=== PATIENT | male | born 1975 | race Caucasian/White ===

== ENCOUNTER → 2016-10-10 | Outpatient (CLI) | payer OTHER ==
[~2016-10-10] MED LIST: COLA100C PO; DULC10SU2 PO; FENO145T PO; FISH100049 PO; FOLI1TAB2 PO; LEVA750T PO; LOPI600T PO; MILKSUS PO; MOTR200T44 PO; ONETAB4 PO; PERCOCET PO; PRAV40TA PO; SENO8.6T10 PO; SIMV20TA2 PO; THERTAB30 PO; VALT1TAB PO; VITA100T60 PO; serax PO
--- NOTE | 2016-10-10 09:54 | REP ---
LUMBOSACRAL SPINE PARTIAL: 10/10/2016. Clinical history: Low back pain. Comparison CT abdomen and pelvis 11/06/2015. Findings: Three views including a coned lateral view lumbosacral junction. The lateral view shows disc space narrowing at L4-5 with grade 1 anterolisthesis of L4-5. There appears to be bilateral spondylolysis at L4 and this is confirmed on the CT reconstructions in sagittal projection from abdominal CT last year. The anterolisthesis has developed since that time along with increased disc space narrowing. The other disc space heights are maintained. There is loss of lordosis. Vertebral body heights are maintained. Endplate sclerosis and spurring anteriorly at the L4-5 level. Pedicles, spinous and transverse processes are intact. SI joints, sacral ala and foramina symmetric. Lower thoracic levels and visualized ribs intact. Impression: 1. Degenerative disc changes with disc space narrowing at L4-5 with grade 1 spondylolisthesis due to spondylolysis of L4. No compression fracture or other acute finding. Signed by Devin Ye MD 10/10/2016 10:46 A
== END ==
LOC: M ADAMS 08:39
PROVIDERS: ATTEND Physician Assistant
DX: M54.5 Low back pain (principal)

== ENCOUNTER → 2017-01-01 | Outpatient (REF) | payer OTHER ==
[~2017-01-01] MED LIST changes: -COLA100C PO; +COLA100C3 PO
== END ==
LOC: M LAB REF 12:12
PROVIDERS: ATTEND Physician Assistant Medical
DX: J02.9 Acute pharyngitis, unspecified (principal)

== ENCOUNTER → 2017-08-06 | Outpatient (REF) | payer OTHER | LOC: M LAB REF 21:34 | DX: J02.9 Acute pharyngitis, unspecified (principal) ==

== ENCOUNTER → 2017-09-12 | Outpatient (CLI) | payer OTHER ==
[2017-09-12 19:49] LABS: BASO # 0.1 10^3/uL (0.0-0.2); BASO % 0.8 % (0.0-1.0); EOS # 0.1 10^3/uL (0.0-0.50); EOS % 1.3 % (0.0-3.0); HEMATOCRIT 45.2 % (42.0-52.0); HEMOGLOBIN 15.1 g/dl (14.0-18.0); LYMPH # 2.4 10^3/uL (1.5-4.5); LYMPH % 26.7 % (24.0-44.0); MEAN CORPUSCULAR HEMOGLOBIN 30.5 pg (27.0-33.0); MEAN CORPUSCULAR HGB CONC 33.4 g/dl (32.0-36.5); MEAN CORPUSCULAR VOLUME 91.3 fl (80.0-96.0); MONO # 0.7 10^3/uL (0.0-0.8); MONO % 7.9 % (0.0-5.0); NEUTROPHILS # 5.6 10^3/uL (1.8-7.7); NEUTROPHILS % 61.3 % (36.0-66.0); PLATELET COUNT, AUTOMATED 306 10^3/uL (150-450); RED BLOOD COUNT 4.95 10^6/uL (4.30-6.10); RED CELL DISTRIBUTION WIDTH 11.9 % (11.5-14.5); WHITE BLOOD COUNT 9.1 10^3/uL (4.0-10.0)
== END ==
LOC: M ADAMS 13:27
DX: J20.9 Acute bronchitis, unspecified (principal)
CPT/HCPCS: 85025

== ENCOUNTER → 2018-08-25 | Outpatient (CLI) | payer OTHER ==
[~2018-08-25] MED LIST changes: -COLA100C3 PO; +COLA100C5 PO; -FENO145T PO; +FENO145T13 PO; +FOLI1TAB11 PO; -FOLI1TAB2 PO; -LEVA750T PO; +LEVA750T7 PO; +MILK120011 PO; -MILKSUS PO
[2018-08-25 13:05] LABS: BASO % 0.2 % (0.0-1.0); EOS # 0.1 10^3/uL (0.0-0.50); EOS % 1.2 % (0.0-3.0); HEMATOCRIT 41.5 % (42.0-52.0); HEMOGLOBIN 14.7 g/dl (13.5-17.5); LYMPH # 1.1 10^3/uL (1.5-4.5); LYMPH % 27.5 % (24.0-44.0); MEAN CORPUSCULAR HEMOGLOBIN 31.4 pg (27.0-33.0); MEAN CORPUSCULAR HGB CONC 35.4 g/dl (32.0-36.5); MEAN CORPUSCULAR VOLUME 88.7 fl (80.0-96.0); MONO # 0.5 10^3/uL (0.0-0.8); MONO % 11.3 % (0.0-5.0); NEUTROPHILS # 2.4 10^3/uL (1.8-7.7); NEUTROPHILS % 59.6 % (36.0-66.0); PLATELET COUNT, AUTOMATED 211 10^3/uL (150-450); RED BLOOD COUNT 4.68 10^6/uL (4.30-6.10); WHITE BLOOD COUNT 4.1 10^3/uL (4.0-10.0)
[2018-08-25 13:12] LABS: ALBUMIN 4.2 GM/DL (3.2-5.2); ALT/SGPT 52 U/L (12-78); AMYLASE 51 U/L (25-115); BILIRUBIN,TOTAL 0.6 MG/DL (0.2-1.0); BLOOD UREA NITROGEN 14 MG/DL (7-18); CALCIUM LEVEL 8.7 MG/DL (8.5-10.1); CARBON DIOXIDE LEVEL 25 MEQ/L (21-32); CHLORIDE LEVEL 104 MEQ/L (98-107); CREATININE FOR GFR 1.03 MG/DL (0.70-1.30); GLOMERULAR FILTRATION RATE > 60.0 (>60); GLUCOSE, FASTING 115 MG/DL (70-100); LIPASE 158 U/L (73-393); POTASSIUM SERUM 4.1 MEQ/L (3.5-5.1); SODIUM LEVEL 138 MEQ/L (136-145); TOTAL PROTEIN 7.3 GM/DL (6.4-8.2)
== END ==
LOC: M LABDRWAD 08:24
PROVIDERS: ATTEND Family Medicine
DX: K29.00 Acute gastritis without bleeding (principal)

== ENCOUNTER → 2019-09-10 | Outpatient (CLI) | payer BC ==
[~2019-09-10] MED LIST changes: -FENO145T13 PO; +FENO145T7 PO; -SIMV20TA2 PO; +SIMV20TA22 PO
--- NOTE | 2019-09-10 15:16 | REP ---
Clinical: Right lower quadrant pain. Technique: Real time ríos scale ultrasound examination using linear high frequency transducer. Findings: Ultrasound examination of the right inguinal region is unremarkable and without evidence for hernia. No underlying fluid collection or abnormality identified. Evaluation of the left inguinal canal for comparison suggests a small early fat containing inguinal hernia. Impression: 1. No obvious right lower quadrant abnormality appreciated. 2. Possible small early fat containing left inguinal hernia. Electronically Signed by Akbar York MD 09/10/2019 03:08 P
== END ==
LOC: M RAD 14:06
PROVIDERS: ATTEND Physician Assistant
DX: K40.90 Unilateral inguinal hernia, without obstruction or gangrene, not specified as recurrent (principal)

== ENCOUNTER → 2020-03-15 | Outpatient (CLI) | payer BC ==
--- NOTE | 2020-04-21 10:26 | REP ---
ANTERIOR ABDOMINAL WALL ULTRASOUND: Delay in reporting results from hospital computer system malfunction from malware/ ransomware. HISTORY: Hernia. FINDINGS: There is a fat-containing umbilical hernia that is nonreducible at ultrasound.. No bowel is identified within the hernia sac. In the left inguinal area, there is a fat containing inguinal hernia that is reducible. In the right inguinal area, no hernia is identified. However, posteromedial to the inguinal canal and medial to the external iliac artery and vein, there is a focal hypoechoic structure measuring 3.5 x 1.1 x 4.2 cm that appears to be a hypoechoic mass. There are faintly visible internal echos.There is no vascular flow with color Doppler imaging. This is of uncertain significance and may represent mass, such as a hematoma, possibly organizing, or a mass of other etiology. This is in the area of the patient's pain. I would recommend follow up CT or MRI for further evaluation. The umbilical, left inguinal and right inguinal areas are evaluated without and with Valsalva. IMPRESSION: There is a hypoechoic 4.2 cm mass posteromedial to the right inguinal canal and medial to the right external iliac artery and vein in the inferior pelvis, of uncertain significance. Hematoma, organizing hematoma and mass of other etiology are some diagnostic possibilities. This is in the area of the patient's pain. There is a reducible fat-containing left inguinal hernia. There is a nonreducible fat-containing umbilical hernia. Consider CT or MRI for follow up evaluation of the pelvic mass on the right. MTDD
== END ==
LOC: M RAD 06:52
PROVIDERS: ATTEND Physician Assistant
DX: R10.9 Unspecified abdominal pain (principal)

== ENCOUNTER → 2020-04-21 | Outpatient (CLI) | payer BC ==
[~2020-04-21] MED LIST changes: +GASTROGRAFIN SOLUTION 30ML (Q9963) As Ordered ONE; +ISOVUE-370 76% 100ML VIAL As Ordered ONE
--- NOTE | 2020-04-21 11:26 | REPVR ---
PROCEDURE INFORMATION: Exam: CT Abdomen And Pelvis With Contrast Exam date and time: 04/21/2020 10:49 AM Age: 44 years old Clinical indication: Mass, lump, or swelling; Rlq; Additional info: R19.03 rlq mass TECHNIQUE: Imaging protocol: Computed tomography of the abdomen and pelvis with intravenous contrast. Radiation optimization: All CT scans at this facility use at least one of these dose optimization techniques: automated exposure control; mA and/or kV adjustment per patient size (includes targeted exams where dose is matched to clinical indication); or iterative reconstruction. Contrast material: ISOVUE 370; Contrast volume: 100 ml; Contrast route: INTRAVENOUS (IV); COMPARISON: CT ABD PELVIS WITH CONTRAST 11/06/2015 3:53 PM FINDINGS: Liver: Normal. No mass. Gallbladder and bile ducts: Normal. No calcified stones. No ductal dilation. Pancreas: Normal. No ductal dilation. Spleen: Normal. No splenomegaly. Adrenals: Normal. No mass. Kidneys and ureters: Normal. No hydronephrosis. Stomach and bowel: Sigmoid and distal descending colonic diverticula are present without evidence of diverticulitis. Appendix: The vermiform appendix is normal. Intraperitoneal space: Unremarkable. No free air. No significant fluid collection. Vasculature: Unremarkable. No abdominal aortic aneurysm. Lymph nodes: No enlarged lymph nodes. Urinary bladder: Unremarkable as visualized. Reproductive: Unremarkable as visualized. Bones/joints: Bilateral L4 spondylolysis. Severe L4-L5 degenerative disc disease, mild anterolisthesis, moderate spondylosis is, moderate bilateral neural foraminal narrowing. Soft tissues: A small paraumbilical hernia containing only abdominal fat is noted. IMPRESSION: 1. No right lower quadrant mass identified. 2. Diverticulosis. Electronically signed by: David Mccracken On 04/21/2020 11:26:10 AM
== END ==
LOC: M RAD 09:10
PROVIDERS: ATTEND Physician Assistant
DX: R19.03 Right lower quadrant abdominal swelling, mass and lump (principal)
CPT/HCPCS: 74177; Q9963; Q9967

== ENCOUNTER 2021-03-01 20:03 | Emergency (ER) | payer BC ==
[~2021-03-01] VITALS: Ht 175.3 cm; Wt 100.1 kg
[~2021-03-01 20:03] MED LIST changes: -GASTROGRAFIN SOLUTION 30ML (Q9963) As Ordered ONE; -ISOVUE-370 76% 100ML VIAL As Ordered ONE
[2021-03-01] MEDS ORDERED: LISI10TA22 PO (20:29)
[2021-03-01 21:09] LABS: BASO % 0.5 % (0.0-1.0); EOS % 0.5 % (0.0-3.0); HEMATOCRIT 44.4 % (42.0-52.0); HEMOGLOBIN 15.5 g/dl (13.5-17.5); LYMPH # 1.6 10^3/uL (1.5-5.0); LYMPH % 27.8 % (24.0-44.0); MEAN CORPUSCULAR HEMOGLOBIN 32.2 pg (27.0-33.0); MEAN CORPUSCULAR HGB CONC 34.9 g/dl (32.0-36.5); MEAN CORPUSCULAR VOLUME 92.1 fl (80.0-96.0); MONO # 0.5 10^3/uL (0.0-0.8); NEUTROPHILS # 3.7 10^3/uL (1.5-8.5); NEUTROPHILS % 62.7 % (36.0-66.0); PLATELET COUNT, AUTOMATED 160 10^3/uL (150-450); RED BLOOD COUNT 4.82 10^6/uL (4.30-6.10); WHITE BLOOD COUNT 5.9 10^3/uL (4.0-10.0)
[2021-03-01] MEDS ORDERED: NS 1,000 ML IV ONE (21:10)
[2021-03-01 21:20] LABS: INR 0.9; PROTHROMBIN TIME 12.5 SECONDS (12.7-14.5)
[2021-03-01 21:21] LABS: PARTIAL THROMBOPLASTIN TIME 29.1 SECONDS (25.9-37.0)
[2021-03-01 21:45] LABS: ALBUMIN 3.8 GM/DL (3.2-5.2); ALT/SGPT 43 U/L (12-78); BILIRUBIN,DIRECT 0.1 MG/DL (0.0-0.2); BILIRUBIN,TOTAL 0.7 MG/DL (0.2-1.0); BLOOD UREA NITROGEN 14 MG/DL (7-18); CALCIUM LEVEL 8.5 MG/DL (8.5-10.1); CARBON DIOXIDE LEVEL 25 MEQ/L (21-32); CHLORIDE LEVEL 105 MEQ/L (98-107); CK-MB VALUE MASS < 1.0 NG/ML (<3.6); CPK CREATINE PHOSPHOKINASE 112 U/L (39-308); CREATININE FOR GFR 0.96 MG/DL (0.70-1.30); ETHYL ALCOHOL (ETHANOL) < 0.003 % (0.000-0.010); FREE T4 0.83 NG/DL (0.76-1.46); GLOMERULAR FILTRATION RATE > 60.0 (>60); GLUCOSE, FASTING 104 MG/DL (70-100); LIPASE 191 U/L (73-393); MB/CK RELATIVE INDEX 0.89 (< OR =4); POTASSIUM SERUM 3.6 MEQ/L (3.5-5.1); SODIUM LEVEL 138 MEQ/L (136-145); TOTAL PROTEIN 7.1 GM/DL (6.4-8.2); TROPONIN I < 0.02 NG/ML (< 0.10)
[2021-03-01] MEDS ORDERED: ISOVUE-370 76% 100ML VIAL As Ordered ONE (22:09)
[2021-03-01] MEDS ORDERED: GI COCKTAIL 50ML BTL(HYOSCYAMINE/MAALOX/LIDOCAINE VISCOUS)(1:3:1) PO ONE (22:30)
[2021-03-01] MEDS ORDERED: HYDROMORPHONE HCL 0.5 MG/ 0.5 ML SYRINGE (J1170 PER 1) IV PRN (22:30)
[2021-03-01] MEDS ORDERED: hydrALAZINE 20MG/ML 1ML VIAL (J0360 PER 20MG) IV ONE (22:30)
--- NOTE | 2021-03-01 23:03 | REPVR ---
PROCEDURE INFORMATION: Exam: CTA Chest With Contrast Exam date and time: 03/01/2021 10:27 PM Age: 45 years old Clinical indication: Chest wall pain; Additional info: Chest pain, luq pain TECHNIQUE: Imaging protocol: Computed tomographic angiography of the chest with contrast. Axial, coronal and sagittal reformatted images were created and reviewed. 3D rendering (Not supervised by radiologist): MIP and/or 3D reconstructed images were created by the technologist. Radiation optimization: All CT scans at this facility use at least one of these dose optimization techniques: automated exposure control; mA and/or kV adjustment per patient size (includes targeted exams where dose is matched to clinical indication); or iterative reconstruction. Contrast material: ISOVUE 370; Contrast volume: 100 ml; Contrast route: INTRAVENOUS (IV); COMPARISON: CR PORTABLE CHEST X-RAY 03/01/2021 8:17 PM FINDINGS: Pulmonary arteries: Contrast opacification satisfactory. No intraluminal filling defect. Aorta: Unremarkable. No aneurysm or dissection. Lungs: Mild central peribronchial thickening, suggestive of airway inflammation. Subtle foci of nodular ground-glass infiltration in the left upper and left lower lobes (series 401, images 84 and 107), nonspecific in appearance. No consolidation. Pleural spaces: Unremarkable. No pneumothorax. No pleural effusion. Heart: Unremarkable. No cardiomegaly. No pericardial effusion. Lymph nodes: No pathologically enlarged lymph nodes. Bones/joints: No acute osseous abnormality. Soft tissues: Unremarkable. IMPRESSION: 1. No CT evidence of pulmonary embolism. 2. Subtle foci of nodular ground-glass infiltration in the left upper and left lower lobes, nonspecific in appearance. Infection cannot be excluded. 3. Additional findings, as above. Electronically signed by: Blayne Burton On 03/01/2021 23:02:44 PM
--- NOTE | 2021-03-01 23:08 | REPVR ---
PROCEDURE INFORMATION: Exam: CT Abdomen And Pelvis With Contrast Exam date and time: 03/01/2021 10:27 PM Age: 45 years old Clinical indication: Abdominal pain; Localized; Left upper quadrant (luq); Additional info: Chest pain, luq pain TECHNIQUE: Imaging protocol: Computed tomography of the abdomen and pelvis with contrast. Axial, coronal and sagittal reformatted images were created and reviewed. Radiation optimization: All CT scans at this facility use at least one of these dose optimization techniques: automated exposure control; mA and/or kV adjustment per patient size (includes targeted exams where dose is matched to clinical indication); or iterative reconstruction. Contrast material: ISOVUE 370; Contrast volume: 100 ml; Contrast route: INTRAVENOUS (IV); COMPARISON: CT ABD PELVIS WITH CONTRAST 04/21/2020 11:06 AM FINDINGS: Liver: Mild hepatomegaly. Diffuse hepatic steatosis. Gallbladder and bile ducts: No radiodense gallstones. No biliary ductal dilatation. Pancreas: Unremarkable. Spleen: Unremarkable. Adrenal glands: Normal. No mass. Kidneys and ureters: No mass. No radiodense calculi. No hydronephrosis. Stomach and bowel: No bowel wall thickening. No obstruction. No pneumatosis. Appendix: Normal. Intraperitoneal space: No free fluid. No organized fluid collection. No free air. Vasculature: Unremarkable. No aneurysm. Lymph nodes: No pathologically enlarged lymph nodes. Urinary bladder: Unremarkable as visualized. Reproductive: Unremarkable. Bones/joints: No acute osseous abnormality. Mild degenerative changes. Bilateral L4 pars defects with grade 1 anterolisthesis of L4 on L5. Soft tissues: Small, fat containing umbilical hernia. IMPRESSION: 1. No CT evidence of acute intra-abdominal or pelvic pathology. 2. Additional findings, as above. Electronically signed by: Blayne Burton On 03/01/2021 23:07:42 PM
[2021-03-01] MEDS ORDERED: **hydrALAZINE HCL** 25 MG TAB PO ONE (23:50)
[2021-03-02 00:26] VITALS: BP 156/82
[2021-03-02 01:17] LABS: CK-MB VALUE MASS < 1.0 NG/ML (<3.6); CPK CREATINE PHOSPHOKINASE 87 U/L (39-308); MB/CK RELATIVE INDEX 1.15 (< OR =4); TROPONIN I < 0.02 NG/ML (< 0.10)
[2021-03-02] MEDS ORDERED: HYDR-3490 PO (01:56)
[2021-03-02 02:15] VITALS: BP 149/83
--- NOTE | 2021-03-02 08:01 | ECGEPIP ---
[facility] - ED Test Date: 2021-03-01 Pat Name: GODFREY MASON Department: Room: - Gender: Male [employer]: BRUCE BROWN : 1975 Requested By: BRITTNEY Moore Order Number: [id number] Reading MD: Selwyn Blum Measurements Intervals [place] Rate: 71 P: 37 [place]: 194 QRS: 1 QRSD: 96 T: 9 QT: 384 QTc: 417 Interpretive Statements Normal sinus rhythm Minimal voltage criteria for LVH, may be normal variant ( R in aVL ) NONSPECIFIC T WAVE ABNORMALITY(S) NO PRIORS FOR COMPARISON Electronically Signed on 03-02-2021 8:00:41 EDT by Selwyn Blum
--- NOTE | 2021-03-02 08:09 | ECGEPIP ---
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
--- NOTE | 2021-03-02 08:31 | REP ---
INDICATION: CHEST PAIN. COMPARISON: 10/29/2017 TECHNIQUE: Portable FINDINGS: The technique utilized in obtaining the radiograph has magnified the cardiac silhouette and accentuated the interstitial markings. The superior mediastinal structures are midline. The cardiac silhouette is unremarkable in size, shape, and position. The diaphragmatic surfaces of the lungs are regular, and the costophrenic angles are clear. The pulmonary bowers are clear. The imaged osseous structures are intact. IMPRESSION: There is no acute cardiopulmonary disease. <Electronically signed by Alonzo Guthrie > 03/02/21 [id number]
--- NOTE | 2021-03-02 08:56 | ED PDOC ---
Post-Departure Follow-Up radiology rpeo rtfaxed to Yumiko Fernandez MD Mar 02, 2021 08:56
== END 2021-03-02 02:25 | disposition home or self-care (01) ==
LOC: M ED 20:03
DX: R07.89 Other chest pain (principal); I10 Essential (primary) hypertension; R11.0 Nausea; R91.8 Other nonspecific abnormal finding of lung field; R16.0 Hepatomegaly, not elsewhere classified; E78.5 Hyperlipidemia, unspecified; M43.16 Spondylolisthesis, lumbar region; Z79.899 Other long term (current) drug therapy
CPT/HCPCS: 71045; 71275; 74177; 80048; 80076; 81001; 82077; 82550; 82553; 83690; 84439; 84443; 84484; 85025; 85610; 85730; 93005; 93041; 94760; 96361; 96374; 96375; 99285; J0360; J1170; Q9967

== ENCOUNTER → 2021-08-18 | Outpatient (CLI) | payer BC ==
[~2021-08-18] MED LIST changes: +HYDR-3490 PO; +LISI10TA22 PO; +PANT40TA29 PO; +VALA1TAB5 PO
== END ==
LOC: M LABSMTC 09:41
PROVIDERS: ATTEND Anesthesiology
DX: Z01.818 Encounter for other preprocedural examination (principal); Z11.52 Encounter for screening for COVID-19

== ENCOUNTER 2021-08-23 11:17 | Day surgery (SDC) | payer BC ==
[~2021-08-23] VITALS: Ht 175.3 cm; Wt 95.3 kg
[~2021-08-23 11:17] MED LIST changes: +NS 1,000 ML IV ONE
[2021-08-23] MEDS ORDERED: LIDOCAINE 2% 100MG/5ML SDV (FOR ANES.) As Ordered ONE (12:56)
[2021-08-23] MEDS ORDERED: fentaNYL 100 MCG/2 ML INJECTION (J3010) As Ordered ONE (12:56)
[2021-08-23] MEDS ORDERED: propofoL 200 MG/20 ML VIAL As Ordered ONE ×2 (13:04→13:12)
[2021-08-23 13:39] VITALS: BP 140/75
== END 2021-08-23 13:40 | disposition home or self-care (01) ==
LOC: M OPP 11:17
PROVIDERS: ATTEND Surgery
DX: Z12.11 Encounter for screening for malignant neoplasm of colon (principal); K31.89 Other diseases of stomach and duodenum; R12 Heartburn; Z79.899 Other long term (current) drug therapy
CPT/HCPCS: 43239; 45378; 88305; J3010

== ENCOUNTER → 2022-05-16 | Outpatient (CLI) | payer BC ==
[~2022-05-16] MED LIST changes: -NS 1,000 ML IV ONE
[2022-05-16 15:46] LABS: RED BLOOD COUNT 4.85 10^6/uL (4.30-6.10); WHITE BLOOD COUNT 4.5 10^3/uL (4.0-10.0)
[2022-05-16 15:47] LABS: MEAN CORPUSCULAR HEMOGLOBIN 35.1 pg (27.0-33.0); MEAN CORPUSCULAR VOLUME 94.8 fl (80.0-96.0); PLATELET COUNT, AUTOMATED 130 10^3/uL (150-450)
[2022-05-16 15:48] LABS: MEAN CORPUSCULAR HGB CONC 36.9 g/dl (32.0-36.5)
[2022-05-16 16:05] LABS: HEMOGLOBIN A1c 5.2 %
[2022-05-16 16:43] LABS: ALBUMIN 3.7 GM/DL (3.2-5.2); ALT/SGPT 60 U/L (12-78); BILIRUBIN,TOTAL 0.8 MG/DL (0.2-1.0); BLOOD UREA NITROGEN 18 MG/DL (7-18); CALCIUM LEVEL 8.1 MG/DL (8.5-10.1); CARBON DIOXIDE LEVEL 26 MEQ/L (21-32); CHLORIDE LEVEL 96 MEQ/L (98-107); CHOLESTEROL LEVEL 525 MG/DL (<200); CHOLESTEROL RISK RATIO 16.935 (<5); CREATININE FOR GFR 1.03 MG/DL (0.70-1.30); GLOMERULAR FILTRATION RATE > 60.0 (>60); GLUCOSE, FASTING 147 MG/DL (70-100); HDL CHOLESTEROL 31 MG/DL (>40); NON-HDL-C 494 MG/DL; SODIUM LEVEL 130 MEQ/L (136-145); TOTAL PROTEIN 6.9 GM/DL (6.4-8.2); TRIGLYCERIDES LEVEL 3055 MG/DL (<150)
[2022-05-16 17:37] LABS: ERYTHROCYTE SEDIMENTATION RATE 4 mm/hr (0-15)
[2022-05-16 18:57] LABS: VITAMIN B12 LEVEL 388 PG/ML (247-911)
== END ==
LOC: M LABDRWAD 09:14
PROVIDERS: ATTEND Family Medicine
DX: E78.2 Mixed hyperlipidemia (principal); Z13.1 Encounter for screening for diabetes mellitus; L40.9 Psoriasis, unspecified; I10 Essential (primary) hypertension; F10.10 Alcohol abuse, uncomplicated; M25.561 Pain in right knee

== ENCOUNTER → 2022-05-17 | Outpatient (CLI) | payer BC ==
[2022-05-17 20:20] LABS: HEMATOCRIT 44.2 % (42.0-52.0); HEMOGLOBIN 15.4 g/dl (13.5-17.5); MEAN CORPUSCULAR HEMOGLOBIN 32.9 pg (27.0-33.0); MEAN CORPUSCULAR HGB CONC 34.8 g/dl (32.0-36.5); MEAN CORPUSCULAR VOLUME 94.4 fl (80.0-96.0); PLATELET COUNT, AUTOMATED 109 10^3/uL (150-450); RED BLOOD COUNT 4.68 10^6/uL (4.30-6.10); WHITE BLOOD COUNT 3.8 10^3/uL (4.0-10.0)
[2022-05-17 22:02] LABS: BILIRUBIN,DIRECT 0.2 MG/DL (0.0-0.2); TOTAL PROTEIN 7.3 GM/DL (6.4-8.2)
== END ==
LOC: M PLALAB 15:15
PROVIDERS: ATTEND Family Medicine
DX: K85.80 Other acute pancreatitis without necrosis or infection (principal); F10.10 Alcohol abuse, uncomplicated

== ENCOUNTER → 2022-08-09 | Outpatient (REF) | payer BC, OTHER ==
[2022-08-09 14:21] LABS: CHOLESTEROL LEVEL 282 MG/DL (<200); CHOLESTEROL RISK RATIO 7.87 (<5); HDL CHOLESTEROL 35.8 MG/DL (>40); NON-HDL-C 246 MG/DL; TRIGLYCERIDES LEVEL 719 MG/DL (<150)
== END ==
LOC: M SFHCADAM 08:20
PROVIDERS: ATTEND Family Medicine
DX: E78.2 Mixed hyperlipidemia (principal)

== ENCOUNTER → 2023-04-11 | Outpatient (CLI) | payer OTHER ==
[2023-04-11 11:50] LABS: HEMATOCRIT 42.4 % (42.0-52.0); HEMOGLOBIN 14.3 g/dl (13.5-17.5); MEAN CORPUSCULAR HEMOGLOBIN 33.1 pg (27.0-33.0); MEAN CORPUSCULAR HGB CONC 33.7 g/dl (32.0-36.5); MEAN CORPUSCULAR VOLUME 98.1 fl (80.0-96.0); PLATELET COUNT, AUTOMATED 165 10^3/uL (150-450); RED BLOOD COUNT 4.32 10^6/uL (4.30-6.10); WHITE BLOOD COUNT 3.3 10^3/uL (4.0-10.0)
[2023-04-11 12:10] LABS: C REACTIVE PROTEIN QUANTITATIV < 0.40 MG/DL (<1.0)
[2023-04-11 12:13] LABS: ERYTHROCYTE SEDIMENTATION RATE 11 mm/hr (0-15)
[2023-04-11 12:29] LABS: ALBUMIN 3.9 G/DL (3.2-5.2); ALKALINE PHOSPHATASE 51 U/L (46-116); ALT/SGPT 71 U/L (7.0-40); AST/SGOT 71 U/L (<34); BILIRUBIN,TOTAL 1.1 MG/DL (0.3-1.2); BLOOD UREA NITROGEN 16 MG/DL (9-23); CALCIUM LEVEL 8.9 MG/DL (8.5-10.1); CARBON DIOXIDE LEVEL 28 MMOL/L (20-31); CHLORIDE LEVEL 103 MMOL/L (98-107); CHOLESTEROL LEVEL 435 MG/DL (<200); CHOLESTEROL RISK RATIO 12.18 (<5); CREATININE FOR GFR 0.89 MG/DL (0.70-1.30); GLOMERULAR FILTRATION RATE > 60.0 (>60); GLUCOSE, FASTING 85 MG/DL (60-100); HDL CHOLESTEROL 35.7 MG/DL (>40); NON-HDL-C 399.3 MG/DL; POTASSIUM SERUM 4.5 MMOL/L (3.5-5.1); SODIUM LEVEL 138 MMOL/L (136-145); TRIGLYCERIDES LEVEL 1223 MG/DL (<150)
== END ==
LOC: M PLALAB 08:41
PROVIDERS: ATTEND Family Medicine
DX: E78.2 Mixed hyperlipidemia (principal)

== ENCOUNTER → 2023-05-30 | Outpatient (REF) | payer OTHER ==
[2023-05-30 14:00] LABS: HEMATOCRIT 44.3 % (42.0-52.0); HEMOGLOBIN 15.1 g/dl (13.5-17.5); MEAN CORPUSCULAR HEMOGLOBIN 33.9 pg (27.0-33.0); MEAN CORPUSCULAR HGB CONC 34.1 g/dl (32.0-36.5); MEAN CORPUSCULAR VOLUME 99.6 fl (80.0-96.0); PLATELET COUNT, AUTOMATED 169 10^3/uL (150-450); RED BLOOD COUNT 4.45 10^6/uL (4.30-6.10); WHITE BLOOD COUNT 4.2 10^3/uL (4.0-10.0)
[2023-05-30 14:24] LABS: ALBUMIN 4.1 G/DL (3.2-5.2); ALKALINE PHOSPHATASE 55 U/L (46-116); ALT/SGPT 74 U/L (7.0-40); AST/SGOT 66 U/L (<34); BILIRUBIN,TOTAL 0.8 MG/DL (0.3-1.2); BLOOD UREA NITROGEN 20 MG/DL (9-23); CALCIUM LEVEL 9.1 MG/DL (8.5-10.1); CARBON DIOXIDE LEVEL 26 MMOL/L (20-31); CHLORIDE LEVEL 103 MMOL/L (98-107); CHOLESTEROL LEVEL 229 MG/DL (<200); CHOLESTEROL RISK RATIO 4.61 (<5); CREATININE FOR GFR 0.95 MG/DL (0.70-1.30); GLOMERULAR FILTRATION RATE > 60.0 (>56); GLUCOSE, FASTING 89 MG/DL (60-100); HDL CHOLESTEROL 49.6 MG/DL (>40); NON-HDL-C 179.4 MG/DL; POTASSIUM SERUM 4.2 MMOL/L (3.5-5.1); SODIUM LEVEL 138 MMOL/L (136-145); TRIGLYCERIDES LEVEL 601 MG/DL (<150)
[2023-05-30 14:26] LABS: TOTAL 25(OH) VITAMIN D 31.8 NG/ML (20.0-100.0); VITAMIN B12 LEVEL 350 PG/ML (211-911)
== END ==
LOC: M LABDRWAD 12:49
PROVIDERS: ATTEND Internal Medicine Hematology
DX: F10.10 Alcohol abuse, uncomplicated (principal); E78.2 Mixed hyperlipidemia

== ENCOUNTER 2023-06-11 15:22 | Emergency (ER) | payer BC, OTHER ==
[~2023-06-11] VITALS: Ht 175.3 cm; Wt 95.5 kg
[2023-06-11 15:24] VITALS: TEMP 98.6
[2023-06-11 16:28] LABS: BASO % 0.9 % (0.0-1.0); EOS % 0.9 % (0.0-3.0); HEMATOCRIT 42.5 % (42.0-52.0); HEMOGLOBIN 14.9 g/dl (13.5-17.5); LYMPH % 27.3 % (24.0-44.0); MEAN CORPUSCULAR HEMOGLOBIN 34.2 pg (27.0-33.0); MEAN CORPUSCULAR HGB CONC 35.1 g/dl (32.0-36.5); MEAN CORPUSCULAR VOLUME 97.5 fl (80.0-96.0); MONO # 0.3 10^3/uL (0.0-0.8); MONO % 8.6 % (2.0-8.0); NEUTROPHILS # 2.2 10^3/uL (1.5-8.5); PLATELET COUNT, AUTOMATED 121 10^3/uL (150-450); RED BLOOD COUNT 4.36 10^6/uL (4.30-6.10); WHITE BLOOD COUNT 3.5 10^3/uL (4.0-10.0)
[2023-06-11 16:55] LABS: LIPASE 80 U/L (12-53)
[2023-06-11 16:59] LABS: ALBUMIN 3.6 G/DL (3.2-5.2); ALKALINE PHOSPHATASE 98 U/L (46-116); ALT/SGPT 267 U/L (7.0-40); AST/SGOT 297 U/L (<34); BILIRUBIN,DIRECT 0.3 MG/DL (<0.4); BILIRUBIN,TOTAL 0.6 MG/DL (0.3-1.2); BLOOD UREA NITROGEN 18 MG/DL (9-23); CALCIUM LEVEL 9.2 MG/DL (8.5-10.1); CARBON DIOXIDE LEVEL 25 MMOL/L (20-31); CHLORIDE LEVEL 102 MMOL/L (98-107); CK-MB VALUE MASS < 1.0 NG/ML (<3.6); CPK CREATINE PHOSPHOKINASE 233 U/L (46-171); CREATININE FOR GFR 0.89 MG/DL (0.70-1.30); GLOMERULAR FILTRATION RATE > 60.0 (>56); GLUCOSE, FASTING 110 MG/DL (60-100); MB/CK RELATIVE INDEX 0.42 (< OR =4); POTASSIUM SERUM 3.9 MMOL/L (3.5-5.1); SODIUM LEVEL 136 MMOL/L (136-145); TOTAL PROTEIN 6.4 G/DL (5.7-8.2)
[2023-06-11] MEDS ORDERED: HYDR-3490 PO (17:09)
[2023-06-11] MEDS ORDERED: AMBI10TA PO (17:09)
[2023-06-11] MEDS ORDERED: NS 1,000 ML IV SCH (18:20)
[2023-06-11] MEDS ORDERED: ISOVUE-370 76% 100ML VIAL As Ordered ONE (18:51)
[2023-06-11 19:08] LABS: CK-MB VALUE MASS < 1.0 NG/ML (<3.6)
[2023-06-11 19:18] LABS: CPK CREATINE PHOSPHOKINASE 201 U/L (46-171); MB/CK RELATIVE INDEX 0.49 (< OR =4)
[2023-06-11] MEDS ORDERED: CHOL4POW26 PO (20:54)
[2023-06-11] MEDS ORDERED: FLUO0.05 TOP (20:54)
[2023-06-11] MEDS ORDERED: ROSU20TA61 PO (20:54)
[2023-06-11] MEDS ORDERED: NALT50TA4 PO (20:54)
[2023-06-11] MEDS ORDERED: HOME MED LIST COMPLETE! XX SCH (21:00)
[2023-06-11 21:15] VITALS: BP 158/97; O2SAT 95
== END 2023-06-11 21:37 | disposition left against medical advice (07) ==
LOC: M ED 15:22
DX: R42 Dizziness and giddiness (principal); I10 Essential (primary) hypertension; E78.5 Hyperlipidemia, unspecified; L40.9 Psoriasis, unspecified; F10.10 Alcohol abuse, uncomplicated; Z79.899 Other long term (current) drug therapy
CPT/HCPCS: 36415; 71275; 74177; 80048; 80076; 82550; 82553; 83690; 84484; 85025; 93005; 93041; 94760; 96360; 96361; 99285; Q9967

== ENCOUNTER → 2023-06-12 | Outpatient (CLI) | payer BC ==
[~2023-06-12] MED LIST changes: +AMBI10TA PO; +CHOL4POW26 PO; +FLUO0.05 TOP; +NALT50TA4 PO; +ROSU20TA61 PO
[2023-06-12 17:40] LABS: INR 1.06; PARTIAL THROMBOPLASTIN TIME 27.1 SECONDS (24.8-34.2); PROTHROMBIN TIME 13.5 SECONDS (12.5-14.5)
[2023-06-12 17:52] LABS: BASO % 0.7 % (0.0-1.0); EOS % 0.4 % (0.0-3.0); HEMATOCRIT 43.9 % (42.0-52.0); HEMOGLOBIN 15.1 g/dl (13.5-17.5); LYMPH % 22.5 % (24.0-44.0); MEAN CORPUSCULAR HGB CONC 34.4 g/dl (32.0-36.5); MEAN CORPUSCULAR VOLUME 98.9 fl (80.0-96.0); MONO # 0.4 10^3/uL (0.0-0.8); MONO % 7.9 % (2.0-8.0); NEUTROPHILS # 3.1 10^3/uL (1.5-8.5); NEUTROPHILS % 68.3 % (36.0-66.0); PLATELET COUNT, AUTOMATED 121 10^3/uL (150-450); RED BLOOD COUNT 4.44 10^6/uL (4.30-6.10); WHITE BLOOD COUNT 4.5 10^3/uL (4.0-10.0)
[2023-06-12 17:56] LABS: CK-MB VALUE MASS < 1.0 NG/ML (<3.6)
[2023-06-12 18:00] LABS: LIPASE 45 U/L (12-53)
[2023-06-12 18:02] LABS: CPK CREATINE PHOSPHOKINASE 123 U/L (46-171); MB/CK RELATIVE INDEX 0.81 (< OR =4)
[2023-06-12 18:04] LABS: FOLATE > 24.0 NG/ML (>5.4); VITAMIN B12 LEVEL 722 PG/ML (211-911)
[2023-06-12 18:08] LABS: ALKALINE PHOSPHATASE 84 U/L (46-116); ALT/SGPT 221 U/L (7.0-40); AST/SGOT 191 U/L (<34); BILIRUBIN,TOTAL 0.9 MG/DL (0.3-1.2); BLOOD UREA NITROGEN 9 MG/DL (9-23); CALCIUM LEVEL 9.2 MG/DL (8.5-10.1); CARBON DIOXIDE LEVEL 26 MMOL/L (20-31); CHLORIDE LEVEL 106 MMOL/L (98-107); CREATININE FOR GFR 0.85 MG/DL (0.70-1.30); GLOMERULAR FILTRATION RATE > 60.0 (>56); GLUCOSE, FASTING 113 MG/DL (60-100); POTASSIUM SERUM 4.2 MMOL/L (3.5-5.1); SODIUM LEVEL 141 MMOL/L (136-145); TOTAL PROTEIN 6.9 G/DL (5.7-8.2)
[2023-06-12 18:26] LABS: HEMOGLOBIN A1c 4.6 % (4.0-6.0)
[2023-06-16 11:35] LABS: THYROID STIMULATING HORMONE 1.318 uIU/ML (0.55-4.78)
[2023-06-16 12:06] LABS: HEPATITIS B CORE ANTIBODY IGM NEGATIVE (NEGATIVE); HEPATITIS C VIRUS ABY INDEX 0.02 INDEX (<0.8)
[2023-06-17 17:07] LABS: CK 1 (BB) 0 % (0); CK 2 (MB) 0 % (0-3); CK 3 (MM) 100 % (97-100); CK MACRO I PERCENT 0 % (Not Observed); CK MACRO II PERCENT 0 % (Not Observed); CK TOTAL 123 U/L (49-439)
== END ==
LOC: M PLALAB 15:17
PROVIDERS: ATTEND Physician Assistant
DX: R74.8 Abnormal levels of other serum enzymes (principal); R79.89 Other specified abnormal findings of blood chemistry; F41.9 Anxiety disorder, unspecified; F10.10 Alcohol abuse, uncomplicated

== ENCOUNTER → 2023-08-13 | Outpatient (CLI) | payer OTHER | LOC: M PLAIMG 11:16 | PROVIDERS: ATTEND Nurse Practitioner Family | DX: M54.2 Cervicalgia (principal); M54.50 Low back pain, unspecified; M47.896 Other spondylosis, lumbar region ==

== ENCOUNTER → 2023-08-21 | Outpatient (CLI) | payer BC | LOC: M PLAIMG 10:46 | PROVIDERS: ATTEND Nurse Practitioner Family | DX: S06.0X0A Concussion without loss of consciousness, initial encounter (principal) ==

== ENCOUNTER → 2023-08-25 | Outpatient (REF) | payer OTHER ==
[2023-08-25 14:46] LABS: HEMATOCRIT 46.3 % (42.0-52.0); HEMOGLOBIN 15.4 g/dl (13.5-17.5); MEAN CORPUSCULAR HEMOGLOBIN 32.5 pg (27.0-33.0); MEAN CORPUSCULAR HGB CONC 33.3 g/dl (32.0-36.5); MEAN CORPUSCULAR VOLUME 97.7 fl (80.0-96.0); PLATELET COUNT, AUTOMATED 182 10^3/uL (150-450); RED BLOOD COUNT 4.74 10^6/uL (4.30-6.10); WHITE BLOOD COUNT 5.2 10^3/uL (4.0-10.0)
[2023-08-25 15:09] LABS: ALBUMIN 4.1 G/DL (3.2-5.2); ALKALINE PHOSPHATASE 60 U/L (46-116); ALT/SGPT 34 U/L (7.0-40); AST/SGOT 24 U/L (<34); BILIRUBIN,TOTAL 0.7 MG/DL (0.3-1.2); BLOOD UREA NITROGEN 16 MG/DL (9-23); CALCIUM LEVEL 9.4 MG/DL (8.5-10.1); CARBON DIOXIDE LEVEL 27 MMOL/L (20-31); CHLORIDE LEVEL 105 MMOL/L (98-107); CHOLESTEROL LEVEL 212 MG/DL (<200); CHOLESTEROL RISK RATIO 4.56 (<5); CREATININE FOR GFR 0.97 MG/DL (0.70-1.30); GLOMERULAR FILTRATION RATE > 60.0 (>56); GLUCOSE, FASTING 98 MG/DL (60-100); HDL CHOLESTEROL 46.4 MG/DL (>40); LDL CHOLESTEROL 116.4 MG/DL (<100); NON-HDL-C 165.6 MG/DL; POTASSIUM SERUM 4.4 MMOL/L (3.5-5.1); SODIUM LEVEL 138 MMOL/L (136-145); TRIGLYCERIDES LEVEL 246 MG/DL (<150)
== END ==
LOC: M SFHCPLAZ 07:47
PROVIDERS: ATTEND Internal Medicine Hematology
DX: E78.2 Mixed hyperlipidemia (principal); K85.80 Other acute pancreatitis without necrosis or infection

== ENCOUNTER → 2023-12-02 | Outpatient (REF) | payer BC ==
[2023-12-02 15:22] LABS: HEPATITIS B SURFACE ANTIGEN NEGATIVE (NEGATIVE)
[2023-12-02 15:34] LABS: HIV 1&2 SCREEN NEGATIVE (NEGATIVE)
[2023-12-02 15:43] LABS: HEPATITIS B CORE ANTIBODY IGM NEGATIVE (NEGATIVE); HEPATITIS C VIRUS ABY INDEX < 0.02 INDEX (<0.8)
== END ==
LOC: M SFHCADAM 10:27
PROVIDERS: ATTEND Nurse Practitioner Family
DX: L40.0 Psoriasis vulgaris (principal)

== ENCOUNTER 2024-07-27 09:13 | Inpatient (IN) | payer BC ==
[~2024-07-27] VITALS: Ht 175.3 cm; Wt 107.4 kg
[~2024-07-27 09:13] MED LIST changes: -ROSU20TA61 PO; +ROSU20TA86 PO
[2024-07-27 09:49] LABS: BASO # 0.1 10^3/uL (0.0-0.2); BASO % 0.4 % (0.0-1.0); HEMATOCRIT 47.5 % (42.0-52.0); HEMOGLOBIN 17.1 g/dl (13.5-17.5); LYMPH # 0.8 10^3/uL (1.5-5.0); LYMPH % 4.2 % (24.0-44.0); MEAN CORPUSCULAR HEMOGLOBIN 33.5 pg (27.0-33.0); MEAN CORPUSCULAR VOLUME 93.1 fl (80.0-96.0); MONO # 0.8 10^3/uL (0.0-0.8); MONO % 4.3 % (2.0-8.0); NEUTROPHILS # 17.2 10^3/uL (1.5-8.5); NEUTROPHILS % 90.3 % (36.0-66.0); PLATELET COUNT, AUTOMATED 126 10^3/uL (150-450); WHITE BLOOD COUNT 19.1 10^3/uL (4.0-10.0)
[2024-07-27] MEDS: PANTOPRAZOLE 40MG VIAL IV ONE (09:58)
[2024-07-27 10:02] LABS: INR 0.97; PROTHROMBIN TIME 13.2 SECONDS (12.5-14.5)
[2024-07-27 10:23] LABS: ALBUMIN 3.8 G/DL (3.2-5.2); ALKALINE PHOSPHATASE 78 U/L (40-129); ALT/SGPT 252 U/L (7.0-40); AST/SGOT 474 U/L (<34); BILIRUBIN,DIRECT 1.3 MG/DL (<0.4); BILIRUBIN,TOTAL 3.7 MG/DL (0.3-1.2); BLOOD UREA NITROGEN 26 MG/DL (9-23); CALCIUM LEVEL 9.1 MG/DL (8.5-10.1); CARBON DIOXIDE LEVEL 18 MMOL/L (20-31); CHLORIDE LEVEL 93 MMOL/L (98-107); CREATININE FOR GFR 1.19 MG/DL (0.70-1.30); GLOMERULAR FILTRATION RATE > 60.0 (>56); GLUCOSE, FASTING 141 MG/DL (60-100); LIPASE 435 U/L (12-53); POTASSIUM SERUM 4.4 MMOL/L (3.5-5.1); SODIUM LEVEL 127 MMOL/L (136-145); TOTAL PROTEIN 6.6 G/DL (5.7-8.2)
[2024-07-27] MEDS: cefTRIAXone SOD 2 GM in DEXTROSE 5% (D5W) ADV/MINI-BAG 50 ML IV ONE (11:22)
[2024-07-27] MEDS: metroNIDAZOLE 500 MG in IV 1 EA IV ONE (12:02)
[2024-07-27] MEDS: LR 1,000 ML IV SCH ×2 (12:03→18:33)
[2024-07-27] MEDS: [UNRECOGNIZED DRUG - OTHER] IV ONE (12:28)
[2024-07-27] MEDS: NS 0.9% IV ONE (12:28)
[2024-07-27] MEDS ORDERED: ISOVUE-370 76% 100ML VIAL As Ordered ONE (12:53)
[2024-07-27 14:15] LABS: BASO # 0.1 10^3/uL (0.0-0.2); BASO % 0.3 % (0.0-1.0); LYMPH # 0.7 10^3/uL (1.5-5.0); LYMPH % 3.8 % (24.0-44.0); MONO # 1.1 10^3/uL (0.0-0.8); MONO % 6.2 % (2.0-8.0); NEUTROPHILS # 15.9 10^3/uL (1.5-8.5); NEUTROPHILS % 88.9 % (36.0-66.0); WHITE BLOOD COUNT 17.8 10^3/uL (4.0-10.0)
[2024-07-27 14:41] LABS: LIPASE 408 U/L (12-53)
[2024-07-27 14:44] LABS: ALKALINE PHOSPHATASE 65 U/L (40-129); ALT/SGPT 195 U/L (7.0-40); AST/SGOT 354 U/L (<34); BILIRUBIN,DIRECT 1.2 MG/DL (<0.4); BILIRUBIN,TOTAL 2.9 MG/DL (0.3-1.2); BLOOD UREA NITROGEN 26 MG/DL (9-23); CALCIUM LEVEL 7.7 MG/DL (8.5-10.1); CARBON DIOXIDE LEVEL 19 MMOL/L (20-31); CHLORIDE LEVEL 96 MMOL/L (98-107); CREATININE FOR GFR 1.15 MG/DL (0.70-1.30); GLOMERULAR FILTRATION RATE > 60.0 (>56); GLUCOSE, FASTING 124 MG/DL (60-100); POTASSIUM SERUM 4.7 MMOL/L (3.5-5.1); SODIUM LEVEL 128 MMOL/L (136-145); TOTAL PROTEIN 5.5 G/DL (5.7-8.2)
[2024-07-27] MEDS: HYDROMORPHONE HCL 0.5 MG/ 0.5 ML SYRINGE IV PRN (15:12)
[2024-07-27 15:17] LABS: C REACTIVE PROTEIN QUANTITATIV 6.64 MG/DL (<1.0)
[2024-07-27 15:24] LABS: PROCALCITONIN 1.58 ng/ml
[2024-07-27] MEDS ORDERED: LORazepam 2 MG TAB PO PRN (15:50)
[2024-07-27] MEDS ORDERED: HOME MED LIST COMPLETE! XX SCH (16:05)
[2024-07-27] MEDS: MEROPENEM INJ 1 GM in IV 1 EA IV ONE (16:36)
[2024-07-27] MEDS ORDERED: HEPARIN SOD (PORCINE) 5000UNITS/ML 1ML VIAL/SYRINGE IV PRN (17:00)
[2024-07-27 17:41] VITALS: BP 150/90; TEMP 98; O2SAT 92
[2024-07-27] MEDS ORDERED: THIAMINE 200MG 2ML VIAL IV SCH (18:00)
[2024-07-27] MEDS: HEPARIN DRIP 25,000 UNITS in IV 1 EA IV SCH (18:34)
[2024-07-27 19:37] VITALS: BP 139/85; TEMP 97.4; O2SAT 92
[2024-07-27] MEDS: MULTIVITAMIN -ADULT INJECTION 10 ML, THIAMINE INJection 100 MG, FOLIC ACID 1 MG in NS (... IV SCH (20:49)
[2024-07-27] MEDS: LORazepam 2 MG/ML 1ML VIAL IV PRN (20:50)
[2024-07-27] MEDS ORDERED: THIAMINE 100 MG TAB PO SCH (21:00)
[2024-07-27 22:40] VITALS: BP 135/87; TEMP 97.2; O2SAT 92
[2024-07-28] VITALS (7 sets, daily range): BP systolic 138–148; BP diastolic 80–94; TEMP 97.2–98.9; O2SAT 90–96
[2024-07-28] MEDS: diphenhydrAMINE 50MG/ML VIAL IV ONE (01:20)
[2024-07-28] MEDS: MEROPENEM INJ 1 GM in IV 1 EA IV SCH (01:20)
[2024-07-28 07:00] LABS: BASO % 0.4 % (0.0-1.0); EOS % 0.1 % (0.0-3.0); HEMATOCRIT 46.5 % (42.0-52.0); HEMOGLOBIN 15.4 g/dl (13.5-17.5); LYMPH % 8.6 % (24.0-44.0); MEAN CORPUSCULAR HEMOGLOBIN 32.4 pg (27.0-33.0); MEAN CORPUSCULAR HGB CONC 33.1 g/dl (32.0-36.5); MEAN CORPUSCULAR VOLUME 97.9 fl (80.0-96.0); MONO # 0.7 10^3/uL (0.0-0.8); MONO % 6.5 % (2.0-8.0); NEUTROPHILS # 9.2 10^3/uL (1.5-8.5); NEUTROPHILS % 83.8 % (36.0-66.0); PLATELET COUNT, AUTOMATED 104 10^3/uL (150-450); RED BLOOD COUNT 4.75 10^6/uL (4.30-6.10)
[2024-07-28 07:27] LABS: ALBUMIN 2.8 G/DL (3.2-5.2); ALKALINE PHOSPHATASE 65 U/L (40-129); ALT/SGPT 136 U/L (7.0-40); AST/SGOT 219 U/L (<34); BILIRUBIN,TOTAL 3.2 MG/DL (0.3-1.2); BLOOD UREA NITROGEN 25 MG/DL (9-23); CALCIUM LEVEL 7.5 MG/DL (8.5-10.1); CARBON DIOXIDE LEVEL 19 MMOL/L (20-31); CHLORIDE LEVEL 103 MMOL/L (98-107); GLOMERULAR FILTRATION RATE > 60.0 (>56); GLUCOSE, FASTING 153 MG/DL (60-100); MAGNESIUM LEVEL 1.8 MG/DL (1.8-2.4); POTASSIUM SERUM 4.3 MMOL/L (3.5-5.1); SODIUM LEVEL 134 MMOL/L (136-145); TOTAL PROTEIN 5.2 G/DL (5.7-8.2)
[2024-07-28] MEDS: PANTOPRAZOLE 40MG VIAL IV SCH (08:33)
[2024-07-28] MEDS ORDERED: FOLIC ACID 1MG TAB PO SCH (09:00)
[2024-07-28] MEDS ORDERED: MULTIVITAMINS/MINERALS THERAP 1 TAB PO SCH (09:00)
[2024-07-28 12:44] LABS: INR 0.98; PARTIAL THROMBOPLASTIN TIME 51.8 SECONDS (24.8-34.2); PROTHROMBIN TIME 13.3 SECONDS (12.5-14.5)
[2024-07-28] MEDS: LR 1,000 ML IV ONE (13:58)
[2024-07-28 19:24] LABS: INR 0.93; PARTIAL THROMBOPLASTIN TIME 46.6 SECONDS (24.8-34.2); PROTHROMBIN TIME 12.8 SECONDS (12.5-14.5)
[2024-07-29] VITALS (10 sets, daily range): BP systolic 127–154; BP diastolic 73–87; TEMP 97.6–99.2; O2SAT 90–95
[2024-07-29] MEDS: diphenhydrAMINE 50MG/ML VIAL IV ONE (01:30)
[2024-07-29 01:51] LABS: PARTIAL THROMBOPLASTIN TIME 47.5 SECONDS (24.8-34.2); PROTHROMBIN TIME 13.5 SECONDS (12.5-14.5)
[2024-07-29 07:44] LABS: HEMATOCRIT 36.8 % (42.0-52.0); MEAN CORPUSCULAR HEMOGLOBIN 32.6 pg (27.0-33.0); MEAN CORPUSCULAR VOLUME 95.8 fl (80.0-96.0); RED BLOOD COUNT 3.84 10^6/uL (4.30-6.10); WHITE BLOOD COUNT 5.6 10^3/uL (4.0-10.0)
[2024-07-29 07:46] LABS: PLATELET COUNT, AUTOMATED 72 10^3/uL (150-450)
[2024-07-29 07:47] LABS: HEMOGLOBIN 12.5 g/dl (13.5-17.5)
[2024-07-29] MEDS ORDERED: NS (Normal Saline) 0.9% 1,000 ML IV SCH (07:50)
[2024-07-29 07:58] LABS: INR 0.89; PARTIAL THROMBOPLASTIN TIME 47.8 SECONDS (24.8-34.2); PROTHROMBIN TIME 12.3 SECONDS (12.5-14.5)
[2024-07-29 08:07] LABS: ATYPICAL LYMPH 3 % (0-5); LYMPHOCYTES 5 % (16-44); MONOCYTES 1 % (0-5); NEUTROPHILS 82 % (28-66)
[2024-07-29 08:08] LABS: PLATELET ESTIMATE DECREASED (NORMAL)
[2024-07-29 08:10] LABS: TOXIC VACUOLATION 1+
[2024-07-29 08:15] LABS: ALBUMIN 2.5 G/DL (3.2-5.2); ALKALINE PHOSPHATASE 52 U/L (40-129); ALT/SGPT 90 U/L (7.0-40); AST/SGOT 151 U/L (<34); BILIRUBIN,TOTAL 3.5 MG/DL (0.3-1.2); BLOOD UREA NITROGEN 15 MG/DL (9-23); CALCIUM LEVEL 7.7 MG/DL (8.5-10.1); CARBON DIOXIDE LEVEL 26 MMOL/L (20-31); CHLORIDE LEVEL 103 MMOL/L (98-107); CREATININE FOR GFR 0.79 MG/DL (0.70-1.30); GLOMERULAR FILTRATION RATE > 60.0 (>56); GLUCOSE, FASTING 129 MG/DL (60-100); MAGNESIUM LEVEL 1.9 MG/DL (1.8-2.4); SODIUM LEVEL 136 MMOL/L (136-145); TOTAL PROTEIN 4.8 G/DL (5.7-8.2)
[2024-07-29 11:54] LABS: PROCALCITONIN 1.13 ng/ml
[2024-07-29 11:55] LABS: C REACTIVE PROTEIN QUANTITATIV 24.19 MG/DL (<1.0)
[2024-07-29] MEDS ORDERED: KETOROLAC 30 MG/ML 1ML VIAL As Ordered ONE (14:48)
[2024-07-29] MEDS ORDERED: fentaNYL 100 MCG/2 ML INJECTION As Ordered ONE (14:56)
[2024-07-29] MEDS ORDERED: LIDOCAINE 2% 100MG/5ML SDV (FOR ANES.) As Ordered ONE (14:57)
[2024-07-29] MEDS ORDERED: SUGAMMADEX SODIUM 500 MG/5 ML VIAL (BRIDION) As Ordered ONE (14:57)
[2024-07-29] MEDS ORDERED: ROCURONIUM BROMIDE 50MG/5ML VIAL As Ordered ONE (14:57)
[2024-07-29] MEDS ORDERED: MIDAZOLAM INJ 2MG/2ML VIAL As Ordered ONE (14:57)
[2024-07-29] MEDS ORDERED: propofoL 200 MG/20 ML VIAL As Ordered ONE (14:57)
[2024-07-29] MEDS ORDERED: ONDANSETRON 4MG 2ML VIAL As Ordered ONE (15:05)
[2024-07-29] MEDS ORDERED: LIDOCAINE 1% MDV 20ML VIAL As Ordered ONE (15:09)
[2024-07-29] MEDS ORDERED: ISOVUE-300 61% 100ML VIAL As Ordered ONE (15:09)
[2024-07-29] MEDS ORDERED: KETOROLAC 60MG 2ML VIAL As Ordered ONE (16:59)
[2024-07-29 18:09] LABS: APPEARANCE, BODY FLUID TURBID (CLEAR); ASCITES FL COLOR RED (COLORLESS); SOURCE, BODY FLUID ASCITES
[2024-07-29] MEDS: CEFEPIME HCL 2 GM in DEXTROSE 5% (D5W) ADV/MINI-BAG 50 ML IV SCH (18:54)
[2024-07-29 19:42] LABS: SOURCE, BODY FLUID LIPASE ASCITES
[2024-07-29] MEDS: metroNIDAZOLE 500 MG in IV 1 EA IV SCH (20:48)
[2024-07-30] VITALS (7 sets, daily range): BP systolic 136–157; BP diastolic 64–86; TEMP 97.9–99.4; O2SAT 90–94
[2024-07-30 07:05] LABS: BASO % 0.3 % (0.0-1.0); EOS % 0.3 % (0.0-3.0); HEMOGLOBIN 9.9 g/dl (13.5-17.5); LYMPH # 0.5 10^3/uL (1.5-5.0); LYMPH % 13.5 % (24.0-44.0); MEAN CORPUSCULAR HEMOGLOBIN 32.9 pg (27.0-33.0); MEAN CORPUSCULAR VOLUME 99.7 fl (80.0-96.0); MONO # 0.5 10^3/uL (0.0-0.8); MONO % 13.2 % (2.0-8.0); NEUTROPHILS # 2.5 10^3/uL (1.5-8.5); NEUTROPHILS % 70.7 % (36.0-66.0); RED BLOOD COUNT 3.01 10^6/uL (4.30-6.10); WHITE BLOOD COUNT 3.6 10^3/uL (4.0-10.0)
[2024-07-30 07:23] LABS: PLATELET COUNT, AUTOMATED 78 10^3/uL (150-450)
[2024-07-30 07:55] LABS: ALBUMIN 2.2 G/DL (3.2-5.2); ALKALINE PHOSPHATASE 46 U/L (40-129); ALT/SGPT 73 U/L (7.0-40); AST/SGOT 110 U/L (<34); BLOOD UREA NITROGEN 11 MG/DL (9-23); CALCIUM LEVEL 7.4 MG/DL (8.5-10.1); CARBON DIOXIDE LEVEL 24 MMOL/L (20-31); CHLORIDE LEVEL 105 MMOL/L (98-107); CREATININE FOR GFR 0.71 MG/DL (0.70-1.30); GLOMERULAR FILTRATION RATE > 60.0 (>56); GLUCOSE, FASTING 131 MG/DL (60-100); MAGNESIUM LEVEL 2.3 MG/DL (1.8-2.4); POTASSIUM SERUM 4.1 MMOL/L (3.5-5.1); SODIUM LEVEL 138 MMOL/L (136-145); TOTAL PROTEIN 4.5 G/DL (5.7-8.2)
[2024-07-30] MEDS ORDERED: LORazepam 2 MG TAB PO PRN (11:10)
[2024-07-30 12:21] LABS: GLOMERULAR FILTRATION RATE > 60.0 (>56)
[2024-07-30] MEDS: THIAMINE 100 MG TAB PO SCH (12:45)
[2024-07-30] MEDS: MULTIVITAMINS/MINERALS THERAP 1 TAB PO SCH (12:45)
[2024-07-30] MEDS: FOLIC ACID 1MG TAB PO SCH (12:45)
[2024-07-30] MEDS: ENOXAPARIN 120MG/0.8ML SYRINGE SC SCH (12:49)
[2024-07-30] MEDS: diphenhydrAMINE 50MG CAP PO ONE (21:26)
[2024-07-31 01:00] VITALS: TEMP 100.4
[2024-07-31] MEDS ORDERED: IBUPROFEN 400MG TAB PO PRN (02:30)
[2024-07-31 04:22] VITALS: BP 164/86; TEMP 98.7; O2SAT 94
[2024-07-31 07:20] LABS: BASO % 0.4 % (0.0-1.0); EOS % 0.4 % (0.0-3.0); HEMATOCRIT 29.3 % (42.0-52.0); HEMOGLOBIN 9.8 g/dl (13.5-17.5); LYMPH # 0.6 10^3/uL (1.5-5.0); LYMPH % 13.1 % (24.0-44.0); MEAN CORPUSCULAR HEMOGLOBIN 33.1 pg (27.0-33.0); MEAN CORPUSCULAR HGB CONC 33.4 g/dl (32.0-36.5); MONO # 0.8 10^3/uL (0.0-0.8); MONO % 18.6 % (2.0-8.0); NEUTROPHILS # 2.8 10^3/uL (1.5-8.5); NEUTROPHILS % 62.4 % (36.0-66.0); RED BLOOD COUNT 2.96 10^6/uL (4.30-6.10); WHITE BLOOD COUNT 4.5 10^3/uL (4.0-10.0)
[2024-07-31 07:26] LABS: PLATELET COUNT, AUTOMATED 83 10^3/uL (150-450)
[2024-07-31 07:41] LABS: ALBUMIN 2.3 G/DL (3.2-5.2); ALKALINE PHOSPHATASE 50 U/L (40-129); ALT/SGPT 70 U/L (7.0-40); AST/SGOT 76 U/L (<34); BILIRUBIN,TOTAL 1.6 MG/DL (0.3-1.2); BLOOD UREA NITROGEN 9 MG/DL (9-23); CALCIUM LEVEL 7.5 MG/DL (8.5-10.1); CARBON DIOXIDE LEVEL 29 MMOL/L (20-31); CHLORIDE LEVEL 100 MMOL/L (98-107); GLOMERULAR FILTRATION RATE > 60.0 (>56); GLUCOSE, FASTING 125 MG/DL (60-100); MAGNESIUM LEVEL 2.1 MG/DL (1.8-2.4); POTASSIUM SERUM 3.8 MMOL/L (3.5-5.1); SODIUM LEVEL 136 MMOL/L (136-145); TOTAL PROTEIN 4.6 G/DL (5.7-8.2)
[2024-07-31 07:52] VITALS: BP 150/84; TEMP 98.2; O2SAT 98
[2024-07-31 12:00] VITALS: BP 138/67; TEMP 97.9; O2SAT 94
[2024-07-31 15:39] VITALS: BP 153/74; TEMP 98.1; O2SAT 96
[2024-07-31 19:44] VITALS: BP 152/70; TEMP 98.5; O2SAT 95
[2024-07-31] MEDS: zolPIDEM TARTRATE 5 MG TAB PO SCH (21:48)
[2024-07-31] MEDS: PANTOPRAZOLE 40MG TAB (PROTONIX) PO SCH (21:48)
[2024-08-01 03:56] VITALS: BP 155/74; TEMP 98.4; O2SAT 94
[2024-08-01 07:05] LABS: BASO % 0.6 % (0.0-1.0); EOS % 0.3 % (0.0-3.0); HEMATOCRIT 27.6 % (42.0-52.0); HEMOGLOBIN 9.5 g/dl (13.5-17.5); LYMPH # 0.7 10^3/uL (1.5-5.0); MEAN CORPUSCULAR HEMOGLOBIN 33.1 pg (27.0-33.0); MEAN CORPUSCULAR HGB CONC 34.4 g/dl (32.0-36.5); MEAN CORPUSCULAR VOLUME 96.2 fl (80.0-96.0); MONO # 0.9 10^3/uL (0.0-0.8); NEUTROPHILS # 4.9 10^3/uL (1.5-8.5); NEUTROPHILS % 69.5 % (36.0-66.0); PLATELET COUNT, AUTOMATED 100 10^3/uL (150-450); RED BLOOD COUNT 2.87 10^6/uL (4.30-6.10)
[2024-08-01 07:29] LABS: ALBUMIN 2.2 G/DL (3.2-5.2); ALKALINE PHOSPHATASE 47 U/L (40-129); ALT/SGPT 55 U/L (7.0-40); AST/SGOT 50 U/L (<34); BILIRUBIN,TOTAL 1.1 MG/DL (0.3-1.2); BLOOD UREA NITROGEN 7 MG/DL (9-23); CALCIUM LEVEL 7.4 MG/DL (8.5-10.1); CARBON DIOXIDE LEVEL 27 MMOL/L (20-31); CHLORIDE LEVEL 100 MMOL/L (98-107); CREATININE FOR GFR 0.64 MG/DL (0.70-1.30); GLOMERULAR FILTRATION RATE > 60.0 (>56); GLUCOSE, FASTING 114 MG/DL (60-100); MAGNESIUM LEVEL 2.1 MG/DL (1.8-2.4); POTASSIUM SERUM 3.2 MMOL/L (3.5-5.1); SODIUM LEVEL 135 MMOL/L (136-145); TOTAL PROTEIN 4.5 G/DL (5.7-8.2)
[2024-08-01 07:50] VITALS: BP 151/81; TEMP 100.4; O2SAT 93
[2024-08-01 08:30] VITALS: TEMP 98.7
[2024-08-01] MEDS: APIXABAN 5 MG TAB (ELIQUIS) PO SCH (08:35)
[2024-08-01 08:37] VITALS: BP 144/81
[2024-08-01] MEDS ORDERED: ELIQ5TAB PO (09:11)
[2024-08-01] MEDS ORDERED: PROT1TAB2 PO (09:11)
[2024-08-01] MEDS ORDERED: LEVO1TAB40 PO (09:11)
[2024-08-01] MEDS ORDERED: METR-265 PO (09:11)
[2024-08-01] MEDS: POTASSIUM CHLORIDE 10MEQ SR TABLET PO ONE (10:02)
[2024-08-01 17:43] LABS: HEP INDUCED PLT AB PATIENT OD 0.085 OD UNITS (<=0.300); HEPARIN INDUCED PLATELET ABY Negative (Negative)
== END 2024-08-01 11:49 | disposition home or self-care (01) | DRG 710 ==
LOC: EDBD 09:13 → M ED 09:13 → M ED INP 14:43 → M PCU 17:39
PROVIDERS: ADMIT Internal Medicine; ATTEND Internal Medicine
PROC: 06C83ZZ Extirpation of Matter from Portal Vein, Percutaneous Approach (ICD-10-PCS; principal; 2024-07-29 15:00)
DX: A41.9 Sepsis, unspecified organism (principal); I81 Portal vein thrombosis; D69.6 Thrombocytopenia, unspecified; K76.6 Portal hypertension; K85.21 Alcohol induced acute pancreatitis with uninfected necrosis; I82.890 Acute embolism and thrombosis of other specified veins; E87.1 Hypo-osmolality and hyponatremia; K70.10 Alcoholic hepatitis without ascites; E78.5 Hyperlipidemia, unspecified; F10.20 Alcohol dependence, uncomplicated; I10 Essential (primary) hypertension; I25.10 Atherosclerotic heart disease of native coronary artery without angina pectoris; L40.8 Other psoriasis; Z79.899 Other long term (current) drug therapy; R65.20 Severe sepsis without septic shock

== ENCOUNTER → 2024-08-09 | Outpatient (REF) | payer BC ==
[~2024-08-09] MED LIST changes: +ELIQ5TAB PO; +LEVO1TAB40 PO; +METR-265 PO; +PROT1TAB2 PO
[2024-08-09 13:15] LABS: BASO # 0.1 10^3/uL (0.0-0.2); EOS % 0.4 % (0.0-3.0); HEMATOCRIT 31.6 % (42.0-52.0); HEMOGLOBIN 10.3 g/dl (13.5-17.5); LYMPH # 1.1 10^3/uL (1.5-5.0); MEAN CORPUSCULAR HEMOGLOBIN 32.1 pg (27.0-33.0); MEAN CORPUSCULAR HGB CONC 32.6 g/dl (32.0-36.5); MEAN CORPUSCULAR VOLUME 98.4 fl (80.0-96.0); MONO # 0.8 10^3/uL (0.0-0.8); MONO % 9.8 % (2.0-8.0); NEUTROPHILS # 5.9 10^3/uL (1.5-8.5); PLATELET COUNT, AUTOMATED 440 10^3/uL (150-450); RED BLOOD COUNT 3.21 10^6/uL (4.30-6.10); WHITE BLOOD COUNT 8.3 10^3/uL (4.0-10.0)
[2024-08-09 13:23] LABS: FOLATE 13.22 NG/ML (>5.4); HEPATITIS B SURFACE ANTIBODY NEGATIVE (POSITIVE)
[2024-08-09 13:24] LABS: VITAMIN B12 LEVEL 1989 PG/ML (211-911)
[2024-08-09 13:28] LABS: ALKALINE PHOSPHATASE 50 U/L (40-129); ALT/SGPT 36 U/L (7.0-40); AST/SGOT 36 U/L (<34); BILIRUBIN,TOTAL 0.5 MG/DL (0.3-1.2); BLOOD UREA NITROGEN 8 MG/DL (9-23); CALCIUM LEVEL 8.6 MG/DL (8.5-10.1); CARBON DIOXIDE LEVEL 27 MMOL/L (20-31); CHLORIDE LEVEL 109 MMOL/L (98-107); CREATININE FOR GFR 0.65 MG/DL (0.70-1.30); GLOMERULAR FILTRATION RATE > 60.0 (>56); GLUCOSE, FASTING 132 MG/DL (60-100); POTASSIUM SERUM 4.3 MMOL/L (3.5-5.1); SODIUM LEVEL 144 MMOL/L (136-145)
== END ==
LOC: M SFHCADAM 08:54
PROVIDERS: ATTEND Student in an Organized Health Care Education/Training Program
DX: R74.01 Elevation of levels of liver transaminase levels (principal); Z86.2 Personal history of diseases of the blood and blood-forming organs and certain disorders involving the immune mechanism

== ENCOUNTER → 2024-09-08 | Outpatient (REF) | payer BC | LOC: M SFHCADAM 14:32 | PROVIDERS: ATTEND Nurse Practitioner Family | DX: L40.0 Psoriasis vulgaris (principal) ==

== ENCOUNTER → 2024-09-09 | Outpatient (CLI) | payer BC | LOC: M RAD 09:12 | PROVIDERS: ATTEND Radiology Diagnostic Radiology | DX: K85.90 Acute pancreatitis without necrosis or infection, unspecified (principal) ==

== ENCOUNTER → 2024-09-15 | Outpatient (POV) | payer BC ==
[~2024-09-15] VITALS: Ht 175.3 cm; Wt 90.9 kg
[~2024-09-15] MED LIST changes: +TALT80IN7 SQ
[2024-09-15 13:25] VITALS: BP 145/89; O2SAT 97
== END ==
LOC: M IRPOV 13:02
PROVIDERS: ATTEND Radiology Diagnostic Radiology
DX: Z48.812 Encounter for surgical aftercare following surgery on the circulatory system (principal); I82.890 Acute embolism and thrombosis of other specified veins; Z79.01 Long term (current) use of anticoagulants; Z86.59 Personal history of other mental and behavioral disorders

== ENCOUNTER → 2024-10-22 | Outpatient (REF) | payer BC ==
[2024-10-22 14:46] LABS: HEMATOCRIT 45.8 % (42.0-52.0)
[2024-10-22 14:49] LABS: ALBUMIN 3.9 G/DL (3.2-5.2); ALKALINE PHOSPHATASE 64 U/L (40-129); ALT/SGPT 32 U/L (7.0-40); AST/SGOT 17 U/L (<34); BASO % 0.4 % (0.0-1.0); BILIRUBIN,TOTAL 0.6 MG/DL (0.3-1.2); BLOOD UREA NITROGEN 18 MG/DL (9-23); CALCIUM LEVEL 9.3 MG/DL (8.5-10.1); CARBON DIOXIDE LEVEL 30 MMOL/L (20-31); CHLORIDE LEVEL 104 MMOL/L (98-107); CHOLESTEROL LEVEL 249 MG/DL (<200); CHOLESTEROL RISK RATIO 7.66 (<5); EOS % 0.9 % (0.0-3.0); GLOMERULAR FILTRATION RATE > 60.0 (>56); GLUCOSE, FASTING 132 MG/DL (60-100); HDL CHOLESTEROL 32.5 MG/DL (>40); HEMATOCRIT 45.7 % (42.0-52.0); IRON (FE) 86 UG/DL (65-175); LDL CHOLESTEROL 168.3 MG/DL (<100); LYMPH # 1.7 10^3/uL (1.5-5.0); LYMPH % 36.5 % (24.0-44.0); MEAN CORPUSCULAR HEMOGLOBIN 29.6 pg (27.0-33.0); MEAN CORPUSCULAR HGB CONC 32.8 g/dl (32.0-36.5); MEAN CORPUSCULAR VOLUME 90.1 fl (80.0-96.0); MONO # 0.4 10^3/uL (0.0-0.8); MONO % 9.4 % (2.0-8.0); NEUTROPHILS # 2.5 10^3/uL (1.5-8.5); NEUTROPHILS % 52.6 % (36.0-66.0); NON-HDL-C 216.5 MG/DL; PLATELET COUNT, AUTOMATED 144 10^3/uL (150-450); POTASSIUM SERUM 4.6 MMOL/L (3.5-5.1); RED BLOOD COUNT 5.07 10^6/uL (4.30-6.10); SODIUM LEVEL 139 MMOL/L (136-145); TOTAL IRON BINDING CAPACITY 331 UG/DL (250-425); TOTAL PROTEIN 6.7 G/DL (5.7-8.2); TRIGLYCERIDES LEVEL 241 MG/DL (<150); WHITE BLOOD COUNT 4.7 10^3/uL (4.0-10.0)
[2024-10-22 14:50] LABS: FERRITIN 249.1 NG/ML (10.5-307.3)
[2024-10-22 14:51] LABS: THYROID STIMULATING HORMONE 1.379 uIU/ML (0.55-4.78); VITAMIN B12 LEVEL 288 PG/ML (211-911)
[2024-10-22 14:53] LABS: HEMOGLOBIN A1c 5.4 % (4.0-6.0)
[2024-10-22 17:21] LABS: CREATININE, URINE 114.3 MG/DL
[2024-10-22 17:22] LABS: MALB URINE SIEMENS < 3.0 MG/L
== END ==
LOC: M SFHCADAM 07:59
PROVIDERS: ATTEND Student in an Organized Health Care Education/Training Program
DX: E78.2 Mixed hyperlipidemia (principal); Z76.89 Persons encountering health services in other specified circumstances; Z86.2 Personal history of diseases of the blood and blood-forming organs and certain disorders involving the immune mechanism; Z13.1 Encounter for screening for diabetes mellitus; I10 Essential (primary) hypertension; F10.10 Alcohol abuse, uncomplicated

== ENCOUNTER → 2024-11-29 | Outpatient (CLI) | payer BC ==
[~2024-11-29] MED LIST changes: -AMBI10TA PO; +ISOVUE-370 76% 100ML VIAL As Ordered ONE; +ZOLP-533 PO
== END ==
LOC: M RAD 09:41
PROVIDERS: ATTEND Radiology Diagnostic Radiology
DX: I82.890 Acute embolism and thrombosis of other specified veins (principal)
CPT/HCPCS: 74177; Q9967

== ENCOUNTER → 2025-03-02 | Outpatient (REF) | payer BC ==
[~2025-03-02] MED LIST changes: -ISOVUE-370 76% 100ML VIAL As Ordered ONE
== END ==
LOC: M SFHCADAM 08:31
PROVIDERS: ATTEND Nurse Practitioner Family
DX: L40.0 Psoriasis vulgaris (principal)

== ENCOUNTER → 2025-04-14 | Outpatient (REF) | payer BC ==
[2025-04-14 15:53] LABS: PLATELET COUNT, AUTOMATED 109 10^3/uL (150-450)
== END ==
LOC: M LABDRWAD 14:48
PROVIDERS: ATTEND Family Medicine
DX: D69.6 Thrombocytopenia, unspecified (principal)

== ENCOUNTER → 2025-04-14 | Outpatient (REF) | payer BC ==
[2025-04-14 15:45] LABS: ALT/SGPT 31 U/L (7.0-40); AST/SGOT 28 U/L (<34); CALCIUM LEVEL 9.2 MG/DL (8.5-10.1); CARBON DIOXIDE LEVEL 28 MMOL/L (20-31); CHLORIDE LEVEL 104 MMOL/L (98-107); CHOLESTEROL LEVEL 254 MG/DL (<200); CHOLESTEROL RISK RATIO 6.03 (<5); CREATININE FOR GFR 0.87 MG/DL (0.70-1.30); GLOMERULAR FILTRATION RATE > 90.0 (>56); NON-HDL-C 211.9 MG/DL; POTASSIUM SERUM 4.3 MMOL/L (3.5-5.1); SODIUM LEVEL 140 MMOL/L (136-145); TRIGLYCERIDES LEVEL 459 MG/DL (<150)
== END ==
LOC: M LABDRWAD 14:40
PROVIDERS: ATTEND Family Medicine
DX: K70.0 Alcoholic fatty liver (principal); E78.2 Mixed hyperlipidemia; F10.21 Alcohol dependence, in remission; D69.6 Thrombocytopenia, unspecified

== ENCOUNTER → 2025-07-07 | Outpatient (REF) | payer BC | LOC: M SFHCPLAZ 08:41 | PROVIDERS: ATTEND Family Medicine | DX: E78.2 Mixed hyperlipidemia (principal) ==

== ENCOUNTER → 2025-07-14 | Outpatient (CLI) | payer BC | LOC: M WHC 16:24 | PROVIDERS: ATTEND Family Medicine | DX: Z53.9 Procedure and treatment not carried out, unspecified reason (principal) ==